=== PATIENT | female | born 1970 | race Caucasian/White ===

== ENCOUNTER 2019-05-28 16:02 | Outpatient (REF) | payer MEDICAID, SELFPAY ==
[2019-05-28 19:20] LABS: Albumin 3.7 g/dL (3.4-5.0); Anion Gap 7.6 mmol/L (3-11); BUN 13 mg/dL (7-18); CO2 27.4 mmol/L (21.0-32.0); CREATININE 0.76 mg/dL (0.55-1.02); Calcium 8.9 mg/dL (8.5-10.1); Chloride 104 mmol/L (98-107); Glucose 88 mg/dL (70-100); Sodium 139 mmol/L (136-145); TSH 0.74 uIU/mL (0.36-3.74)
[2019-05-28 19:56] LABS: D-Dimer 261 ng/mlFEU (<500)
== END 2019-05-28 16:22 ==
LOC: NCHCN 16:02
PROVIDERS: PCP Internal Medicine; Visit Provider Internal Medicine
DX: I87.2 Venous insufficiency (chronic) (peripheral) (principal)
CPT/HCPCS: 80048; 82040; 84443; 85379

== ENCOUNTER 2020-04-29 18:58 | Outpatient (REF) | payer MEDICAID, SELFPAY ==
[2020-04-29 19:08] LABS: Abs Immature Grans 0.01 10^3/uL (0.0-0.06); Absolute Basophil Count 0.04 10^3/uL (0.0-0.2); Absolute Eosinophil Count 0.13 10^3/uL (0.0-0.7); Absolute Lymphocyte Count 1.79 10^3/uL (1.2-3.4); Absolute Neutrophil Count 1.73 10^3/uL (1.2-6.7); Eosinophils % 3.1; HCT 39.7 % (36.0-46.0); HGB 12.9 g/dL (11.2-15.7); Immature Grans % 0.2; Lymphocytes % 42.6; MCH 28.3 pg (27.0-33.0); MCHC 32.5 % (32.0-36.0); MCV 87.1 fL (80-95); MPV 10.3 fL (8.0-11.0); Monocytes % 11.9; Neutrophils % 41.2; Nucleated RBC 0 %; Platelet Count 252 10^3/uL (130-400); RBC 4.56 10^6/uL (3.93-5.22); RDW 15.1 % (11.7-14.6); RDW-SD 48.3 fL
[2020-04-29 19:25] LABS: ALT 31 U/L (14-59); AST 25 U/L (15-37); Alkaline Phosphatase 66 U/L (46-116); Anion Gap 5.9 mmol/L (3-11); BUN 14 mg/dL (7-18); Bilirubin, Total 0.6 mg/dL (0.2-1.0); CO2 29.1 mmol/L (21.0-32.0); CREATININE 0.86 mg/dL (0.55-1.02); Calcium 9.1 mg/dL (8.5-10.1); Calculated LDL 131 mg/dL (<100); Chloride 103 mmol/L (98-107); Cholesterol 215 mg/dL (<200); Glucose 85 mg/dL (74-106); HDL Cholesterol 70 mg/dL (40-60); Potassium 4.1 mmol/L (3.5-5.1); Sodium 138 mmol/L (136-145); TSH 5.79 uIU/mL (0.36-3.74); Total Protein 8.1 g/dL (6.4-8.2); Triglyceride 73 mg/dL (<150)
[2020-04-29 20:21] LABS: Iron 38 ug/dL (50-170)
[2020-05-01 10:10] LABS: FREE T4 1.01 ng/dL (0.76-1.46)
== END 2020-04-29 19:18 ==
LOC: NCHCN 18:58
PROVIDERS: PCP Internal Medicine; Visit Provider Physician Assistant
DX: E03.9 Hypothyroidism, unspecified (principal); R51.9 Headache, unspecified; H53.9 Unspecified visual disturbance; Z13.220 Encounter for screening for lipoid disorders
CPT/HCPCS: 80053; 80061; 83540; 84439; 84443; 85025

== ENCOUNTER 2020-06-03 14:16 | Outpatient (REF) | payer MEDICAID, SELFPAY ==
[2020-06-03 20:49] LABS: TSH (W/Ref FT4) 0.41 uIU/mL (0.36-3.74)
== END 2020-06-03 14:36 ==
LOC: NCHCN 14:16
PROVIDERS: PCP Internal Medicine; Visit Provider Physician Assistant
DX: E03.9 Hypothyroidism, unspecified (principal)
CPT/HCPCS: 84443

== ENCOUNTER 2021-05-29 12:32 | Outpatient (REF) | payer MEDICAID, SELFPAY ==
--- NOTE | 2021-05-28 15:45 | PAPFT_PTH ---
PATIENT: Alyssa Paez LOC: [facility]#:[id number] AGE/SX: 51/F ROOM: RE05/29/[address]: Antwan West : 1970 BED: DIS: 05/29/2021 SPEC #: [id number] RECD: 05/29/21 13:04 STATUS: GEORGIE RITCHIE #: [id number] NICKI: 05/28/21 15:[address]: Antwan West DEPT: [facility] Cytology RECD BY: Traci Kowalski Tissues: 1 - CX/ENDOCX FOR PAP SMEARS Procedures: PAP THIN PREP/[facility] Screening HPV DNA PROBE Comments: [id number]
== END 2021-05-29 12:33 | disposition home or self-care (01) ==
LOC: NCHCN 12:32
PROVIDERS: PCP Internal Medicine; Visit Provider Internal Medicine
DX: Z12.4 Encounter for screening for malignant neoplasm of cervix (principal); Z11.51 Encounter for screening for human papillomavirus (HPV)
CPT/HCPCS: 88142; 87624

== ENCOUNTER 2021-09-09 15:04 | Outpatient (REF) | payer MEDICAID, SELFPAY ==
[2021-09-09 21:29] LABS: TSH 0.25 uIU/mL (0.36-3.74)
== END 2021-09-09 15:05 | disposition home or self-care (01) ==
LOC: NCHCN 15:04
PROVIDERS: PCP Internal Medicine; Visit Provider Internal Medicine
DX: E03.9 Hypothyroidism, unspecified (principal)
CPT/HCPCS: 84443

== ENCOUNTER 2021-11-24 19:39 | Outpatient (REF) | payer MEDICAID, SELFPAY ==
[2021-11-24 19:23] LABS: TSH 0.24 uIU/mL (0.36-3.74)
== END 2021-11-24 19:40 | disposition home or self-care (01) ==
LOC: NCHCN 19:39
PROVIDERS: PCP Internal Medicine; Visit Provider Internal Medicine
DX: E03.9 Hypothyroidism, unspecified (principal)
CPT/HCPCS: 84443

== ENCOUNTER 2022-01-12 18:34 | Outpatient (REF) | payer MEDICAID, SELFPAY ==
[2022-01-12 19:29] LABS: TSH 3.59 uIU/mL (0.36-3.74)
== END 2022-01-12 18:35 | disposition home or self-care (01) ==
LOC: NCHCN 18:34
PROVIDERS: PCP Internal Medicine; Visit Provider Internal Medicine
DX: E03.9 Hypothyroidism, unspecified (principal)
CPT/HCPCS: 84443

== ENCOUNTER 2023-08-15 16:08 | Outpatient (REF) | payer MEDICAID, SELFPAY ==
[2023-08-15 21:15] LABS: TSH 5.87 uIU/mL (0.36-3.74)
== END 2023-08-15 16:09 | disposition home or self-care (01) ==
LOC: NCHCN 16:08
PROVIDERS: PCP Internal Medicine; Visit Provider Internal Medicine
DX: E06.3 Autoimmune thyroiditis (principal)
CPT/HCPCS: 84443

== ENCOUNTER 2023-11-09 14:50 | Outpatient (REF) | payer MEDICAID, SELFPAY ==
[2023-11-09 20:24] LABS: TSH 9.68 uIU/Ml (0.36-3.74)
== END 2023-11-09 14:51 | disposition home or self-care (01) ==
LOC: NCHCN 14:50
PROVIDERS: PCP Internal Medicine; Visit Provider Internal Medicine
DX: E03.9 Hypothyroidism, unspecified (principal)
CPT/HCPCS: 84443

== ENCOUNTER 2023-12-20 12:18 | Outpatient (REF) | payer MEDICAID, SELFPAY ==
[2023-12-20 19:38] LABS: TSH 0.11 uIU/Ml (0.36-3.74)
== END 2023-12-20 12:19 | disposition home or self-care (01) ==
LOC: NCHCN 12:18
PROVIDERS: PCP Internal Medicine; Visit Provider Internal Medicine
DX: E03.9 Hypothyroidism, unspecified (principal)
CPT/HCPCS: 84443

== ENCOUNTER 2024-02-28 18:55 | Outpatient (REF) | payer MEDICAID, SELFPAY ==
[2024-02-28 21:27] LABS: TSH 0.13 uIU/Ml (0.36-3.74)
== END 2024-02-28 18:56 | disposition home or self-care (01) ==
LOC: NCHCN 18:55
PROVIDERS: PCP Internal Medicine; Visit Provider Internal Medicine
DX: E03.9 Hypothyroidism, unspecified (principal)
CPT/HCPCS: 84443

== ENCOUNTER 2024-07-31 15:55 | Outpatient (REF) | payer MEDICAID, SELFPAY | END 2024-07-31 15:56 | disposition home or self-care (01) | LOC: NCHCN 15:55 | PROVIDERS: PCP Internal Medicine; Visit Provider Internal Medicine | DX: E03.9 Hypothyroidism, unspecified (principal) | CPT/HCPCS: 84443 ==

== ENCOUNTER 2024-11-05 17:47 | Outpatient (REF) | payer MEDICAID, SELFPAY ==
--- NOTE | 2024-11-05 15:05 | PAPFT_PTH ---
PATIENT: Alyssa Paez LOC: [facility]#:[id number] AGE/SX: 54/F ROOM: RE11/05/[address]: Antwan West : 1970 BED: DIS: 11/05/2024 SPEC #: [id number] RECD: 11/06/24 13:00 STATUS: GEORGIE RITCHIE #: [id number] NICKI: 11/05/24 15:[address]: Antwan West DEPT: [facility] Cytology RECD BY: Traci Kowalski Tissues: 1 - CX/ENDOCX FOR PAP SMEARS Procedures: PAP THIN PREP/[facility] Screening HPV DNA PROBE Comments: [id number] (HPV 16 & 18/45)
== END 2024-11-05 17:48 | disposition home or self-care (01) ==
LOC: NCHCN 17:47
PROVIDERS: PCP Internal Medicine; Visit Provider Internal Medicine
DX: Z12.4 Encounter for screening for malignant neoplasm of cervix (principal)
CPT/HCPCS: 88142; 87624

== ENCOUNTER 2025-02-25 15:40 | Outpatient (REF) | payer MEDICAID, SELFPAY ==
[2025-02-25 19:56] LABS: TSH 2.17 uIU/mL (0.36-3.74)
== END 2025-02-25 15:41 | disposition home or self-care (01) ==
LOC: NCHCN 15:40
PROVIDERS: PCP Internal Medicine; Visit Provider Internal Medicine
DX: E03.9 Hypothyroidism, unspecified (principal)
CPT/HCPCS: 84443